=== PATIENT | female | born 1955 | race Caucasian/White ===

== ENCOUNTER → 2016-12-08 | Outpatient (CLI) | payer OTHER | LOC: KOH-I 12:57 | DX: M79.643 Pain in unspecified hand (principal); M25.569 Pain in unspecified knee; M17.0 Bilateral primary osteoarthritis of knee; M19.042 Primary osteoarthritis, left hand; M19.041 Primary osteoarthritis, right hand | CPT/HCPCS: 73130; 73564 ==

== ENCOUNTER 2020-09-13 21:47 | Emergency (ER) | payer OTHER ==
[~2020-09-13 21:47] MED LIST: ADVAIR 250-501 EACH INH; CALCIUM 500 +1 EAC1 PO; COZAAR25 MG PO; ELAVIL 10 MG TA10 MG PO; ELAVIL 25 MG TA25 MG PO; FOLIC ACID 1 MG1 MG PO; IBU800 MG PO; IBUPROFEN600 MG PO; INCRUSE ELLI62.5 MCG INH; K-DUR TAB 10 M10 MEQ PO; KEFLEX CAP 500500 MG PO; LEVAQUIN750 MG PO; LIPITOR TAB 2020 MG PO; LYRICA300 MG PO; METHOTREXATE T2.5 MG PO; METHOTREXATE2.5 MG PO; NORCO 10-325 T1 EACH PO; NORCO 5-325 TA1 EACH PO; NORCO 7.5-3251 EACH PO; OMEPRAZOLE40 MG PO; OMNICEF 300 MG300 MG PO; PERCOCET 10-321 EACH PO; PERCOCET 5-3251 EACH PO; POTASSIUM PO; PROVENTIL HFA6.7 GM INH; VISTARIL 25 MG25 MG PO; VITAMIN B12 SL; VITAMIN D3 PO; ZOLOFT100 MG PO
[2020-09-13 22:20] LABS: HEMOGLOBIN 14.5 gm/dl (12.3-15.3); RED BLOOD COUNT 5.2 M/UL (4.00-5.10); WHITE BLOOD COUNT 8.5 K/UL (4.5-11.0)
[2020-09-13 22:40] LABS: BUN/CREATININE RATIO 24 (0-10)
[2020-09-13] MEDS ORDERED: ZOFRAN 4 MG TAB4 MG PO (23:34)
[2020-09-13] MEDS ORDERED: AUGMENTIN 875-1 EACH PO (23:34)
[2020-09-13] MEDS ORDERED: FLAGYL500 MG PO (23:34)
== END 2020-09-14 00:15 | disposition home or self-care (01) ==
LOC: ER1 21:47
PROVIDERS: Emergency Medicine
DX: K52.9 Noninfective gastroenteritis and colitis, unspecified (principal); J44.9 Chronic obstructive pulmonary disease, unspecified; F17.200 Nicotine dependence, unspecified, uncomplicated
CPT/HCPCS: 71045; 80053; 83605; 83690; 84484; 85025; 93005; 99285; Q9967

== ENCOUNTER 2020-09-29 03:29 | Emergency (ER) | payer OTHER ==
[~2020-09-29 03:29] MED LIST changes: +AUGMENTIN 875-1 EACH PO; +FLAGYL500 MG PO; +ZOFRAN 4 MG TAB4 MG PO
[2020-09-29 08:20] LABS: HEMOGLOBIN 12.6 gm/dl (12.3-15.3); RED BLOOD COUNT 4.48 M/UL (4.00-5.10); WHITE BLOOD COUNT 4.4 K/UL (4.5-11.0)
[2020-09-29 08:39] LABS: BUN/CREATININE RATIO 8 (0-10)
== END 2020-09-29 15:48 | disposition home or self-care (01) ==
LOC: ER1 03:29
PROVIDERS: Family Medicine
DX: S49.91XA Unspecified injury of right shoulder and upper arm, initial encounter (principal); M25.521 Pain in right elbow; R10.9 Unspecified abdominal pain; M54.5 Low back pain; G89.29 Other chronic pain; E87.6 Hypokalemia; R11.2 Nausea with vomiting, unspecified; J44.9 Chronic obstructive pulmonary disease, unspecified; F17.200 Nicotine dependence, unspecified, uncomplicated; Z87.19 Personal history of other diseases of the digestive system; Z88.6 Allergy status to analgesic agent; Z88.5 Allergy status to narcotic agent; Z99.81 Dependence on supplemental oxygen; W19.XXXA Unspecified fall, initial encounter
CPT/HCPCS: 36415; 73030; 73080; 73502; 80053; 81001; 83605; 83690; 85025; 85610; 99285; J7030

== ENCOUNTER 2020-10-23 17:20 | Emergency (ER) | payer OTHER ==
[2020-10-23 18:34] LABS: HEMOGLOBIN 10.2 gm/dl (12.3-15.3); RED BLOOD COUNT 3.7 M/UL (4.00-5.10); WHITE BLOOD COUNT 3.5 K/UL (4.5-11.0)
[2020-10-23 18:53] LABS: BUN/CREATININE RATIO 11 (0-10)
== END 2020-10-23 19:34 | disposition home or self-care (01) ==
LOC: ER1 17:20
PROVIDERS: Physician Assistant
DX: M54.5 Low back pain (principal); G89.29 Other chronic pain; J44.9 Chronic obstructive pulmonary disease, unspecified; E78.5 Hyperlipidemia, unspecified; Z88.6 Allergy status to analgesic agent; Z88.8 Allergy status to other drugs, medicaments and biological substances
CPT/HCPCS: 80053; 85025; 99283

== ENCOUNTER 2020-10-30 18:02 | Emergency (ER) | payer OTHER ==
[2020-10-30] MEDS ORDERED: CYCLOBENZAPRINE10 MG PO (20:22)
== END 2020-10-30 20:45 | disposition home or self-care (01) ==
LOC: ER1 18:02
DX: M62.830 Muscle spasm of back (principal); M62.838 Other muscle spasm; J44.9 Chronic obstructive pulmonary disease, unspecified
CPT/HCPCS: 72040; 72100; 96374; 99283; J1170; J2543; J3370; J7030

== ENCOUNTER → 2020-10-31 | Outpatient (CLI) | payer OTHER ==
[~2020-10-31] MED LIST changes: +CYCLOBENZAPRINE10 MG PO; +NAPROXEN500 MG PO
== END ==
LOC: CT 10-08 14:00
DX: R91.1 Solitary pulmonary nodule (principal); R10.84 Generalized abdominal pain
CPT/HCPCS: 71260; Q9967

== ENCOUNTER → 2020-11-11 | Outpatient (CLI) | payer OTHER | LOC: EXRD 13:41 | DX: E04.1 Nontoxic single thyroid nodule (principal) | CPT/HCPCS: 76536 ==

== ENCOUNTER 2020-11-27 18:01 | Emergency (ER) | payer OTHER ==
[~2020-11-27 18:01] MED LIST changes: -NAPROXEN500 MG PO
[2020-11-27] MEDS ORDERED: CYCLOBENZAPRINE10 MG PO (20:07)
== END 2020-11-27 20:45 | disposition home or self-care (01) ==
LOC: ER1 18:01
DX: M54.2 Cervicalgia (principal); G89.29 Other chronic pain; M54.5 Low back pain; F17.210 Nicotine dependence, cigarettes, uncomplicated
CPT/HCPCS: 96372; 99283; J2270; J2405

== ENCOUNTER 2020-11-29 12:19 | Emergency (ER) | payer OTHER ==
[~2020-11-29 12:19] MED LIST changes: -NAPROXEN500 MG PO
== END 2020-11-29 15:20 | disposition home or self-care (01) ==
LOC: ER1 12:19
DX: S30.0XXA Contusion of lower back and pelvis, initial encounter (principal); S40.011A Contusion of right shoulder, initial encounter; S50.01XA Contusion of right elbow, initial encounter; S80.01XA Contusion of right knee, initial encounter; S40.012A Contusion of left shoulder, initial encounter; S80.02XA Contusion of left knee, initial encounter; W18.30XA Fall on same level, unspecified, initial encounter; Y92.410 Unspecified street and highway as the place of occurrence of the external cause
CPT/HCPCS: 70450; 72100; 73030; 73564; 99284

== ENCOUNTER → 2020-11-29 | Outpatient (CLI) | payer OTHER ==
[~2020-11-29] MED LIST changes: +NAPROXEN500 MG PO
[2020-11-29 10:33] LABS: HEMOGLOBIN 10.7 gm/dl (12.3-15.3); RED BLOOD COUNT 3.93 M/UL (4.00-5.10); WHITE BLOOD COUNT 4.9 K/UL (4.5-11.0)
== END | disposition home or self-care (01) ==
LOC: US 09:55
PROVIDERS: Otolaryngology
DX: E04.1 Nontoxic single thyroid nodule (principal)
CPT/HCPCS: 36415; 85027; 85610; 85730

== ENCOUNTER 2021-01-12 22:48 | Emergency (ER) | payer OTHER | END 2021-01-13 01:40 | disposition home or self-care (01) | LOC: ER1 22:48 | DX: S63.601A Unspecified sprain of right thumb, initial encounter (principal); S80.02XA Contusion of left knee, initial encounter; S80.01XA Contusion of right knee, initial encounter; M06.9 Rheumatoid arthritis, unspecified; J44.9 Chronic obstructive pulmonary disease, unspecified; F17.200 Nicotine dependence, unspecified, uncomplicated; W01.0XXA Fall on same level from slipping, tripping and stumbling without subsequent striking against object, initial encounter | CPT/HCPCS: 73130; 73564; 99283; J1885 ==

== ENCOUNTER 2021-02-25 20:00 | Emergency (ER) | payer OTHER ==
[2021-02-25] MEDS ORDERED: NAPROXEN500 MG PO (21:05)
== END 2021-02-25 21:20 | disposition home or self-care (01) ==
LOC: ER1 20:00
DX: S40.022A Contusion of left upper arm, initial encounter (principal); S80.212A Abrasion, left knee, initial encounter; J44.9 Chronic obstructive pulmonary disease, unspecified; W17.89XA Other fall from one level to another, initial encounter; Y92.009 Unspecified place in unspecified non-institutional (private) residence as the place of occurrence of the external cause
CPT/HCPCS: 73060; 73080; 73564; 99283

== ENCOUNTER 2021-03-18 23:18 | Emergency (ER) | payer OTHER ==
[~2021-03-18 23:18] MED LIST changes: +NAPROXEN500 MG PO
[2021-03-19] MEDS ORDERED: Voltaren Gel 1 % TOP (02:33)
== END 2021-03-19 02:35 | disposition home or self-care (01) ==
LOC: ER1 23:18
DX: M54.5 Low back pain (principal); Z79.899 Other long term (current) drug therapy; F17.200 Nicotine dependence, unspecified, uncomplicated
CPT/HCPCS: 99283

== ENCOUNTER 2021-04-09 16:18 | Emergency (ER) | payer OTHER ==
[~2021-04-09 16:18] MED LIST changes: +Voltaren Gel 1 % TOP
[2021-04-09 19:48] LABS: HEMOGLOBIN 11.1 gm/dl (12.3-15.3); RED BLOOD COUNT 3.98 M/UL (4.00-5.10); WHITE BLOOD COUNT 4.3 K/UL (4.5-11.0)
[2021-04-09 20:13] LABS: BUN/CREATININE RATIO 11 (0-10)
[2021-04-09] MEDS ORDERED: DOXYCYCLINE HY100 MG PO (21:43)
[2021-04-09] MEDS ORDERED: PREDNISONE 20 M20 MG PO (21:43)
[2021-04-09] MEDS ORDERED: TESSALON PERLE100 MG PO (21:44)
== END 2021-04-09 22:08 | disposition home or self-care (01) ==
LOC: ER1 16:18
PROVIDERS: Physician Assistant
DX: J44.1 Chronic obstructive pulmonary disease with (acute) exacerbation (principal); R35.0 Frequency of micturition; Z88.5 Allergy status to narcotic agent; Z88.8 Allergy status to other drugs, medicaments and biological substances; F17.200 Nicotine dependence, unspecified, uncomplicated; Z20.822 Contact with and (suspected) exposure to COVID-19; M06.9 Rheumatoid arthritis, unspecified
CPT/HCPCS: 36600; 71045; 80053; 82550; 82553; 82803; 83874; 84484; 85025; 93005; 94664; 94760; 96374; 99285; J2930; U0002

== ENCOUNTER 2021-04-10 22:55 | Emergency (ER) | payer OTHER ==
[~2021-04-10 22:55] MED LIST changes: +DOXYCYCLINE HY100 MG PO; +PREDNISONE 20 M20 MG PO; +TESSALON PERLE100 MG PO
[2021-04-10 23:33] LABS: RED BLOOD COUNT 3.96 M/UL (4.00-5.10); WHITE BLOOD COUNT 5.1 K/UL (4.5-11.0)
[2021-04-11 00:11] LABS: BUN/CREATININE RATIO 13 (0-10)
== END 2021-04-11 00:30 | disposition home or self-care (01) ==
LOC: ER1 22:55
PROVIDERS: Preventive Medicine Occupational Medicine
DX: J44.9 Chronic obstructive pulmonary disease, unspecified (principal); F17.210 Nicotine dependence, cigarettes, uncomplicated
CPT/HCPCS: 36600; 71045; 80053; 82550; 82553; 82803; 83605; 83874; 83880; 84484; 85025; 86140; 87040; 93005; 94664; 94760; 96374; 96375; 99285; J0696; J2930

== ENCOUNTER 2021-09-22 17:43 | Emergency (ER) | payer MEDICARE, OTHER ==
[2021-09-22] MEDS ORDERED: LOTRIMIN AF90 GM TP (18:10)
== END 2021-09-22 18:23 | disposition home or self-care (01) ==
LOC: ER1 17:43
DX: B37.2 Candidiasis of skin and nail (principal); G89.29 Other chronic pain; M54.2 Cervicalgia; M54.9 Dorsalgia, unspecified; J44.9 Chronic obstructive pulmonary disease, unspecified; F17.210 Nicotine dependence, cigarettes, uncomplicated; Z88.5 Allergy status to narcotic agent; Z88.6 Allergy status to analgesic agent; Z88.8 Allergy status to other drugs, medicaments and biological substances
CPT/HCPCS: 99283

== ENCOUNTER 2021-12-03 22:48 | Emergency (ER) | payer MEDICARE, OTHER ==
[~2021-12-03 22:48] MED LIST changes: +LOTRIMIN AF90 GM TP
[2021-12-04 02:51] LABS: HEMOGLOBIN 12.8 gm/dl (12.3-15.3); RED BLOOD COUNT 4.45 M/UL (4.00-5.10); WHITE BLOOD COUNT 5.8 K/UL (4.5-11.0)
[2021-12-04 03:23] LABS: BUN/CREATININE RATIO 12 (0-10)
== END 2021-12-04 05:45 | disposition home or self-care (01) ==
LOC: ER1 22:48
PROVIDERS: Physician Assistant
DX: S20.211A Contusion of right front wall of thorax, initial encounter (principal); R10.11 Right upper quadrant pain; G89.29 Other chronic pain; M54.50 Low back pain, unspecified; F17.200 Nicotine dependence, unspecified, uncomplicated; Z88.6 Allergy status to analgesic agent; W01.10XA Fall on same level from slipping, tripping and stumbling with subsequent striking against unspecified object, initial encounter
CPT/HCPCS: 71111; 80053; 81001; 82550; 82553; 83690; 84484; 85025; 93005; 99284; Q9967

== ENCOUNTER 2021-12-09 18:27 | Emergency (ER) | payer MEDICARE, OTHER ==
[2021-12-09] MEDS ORDERED: IBUPROFEN600 MG PO (22:07)
[2021-12-09] MEDS ORDERED: CYCLOBENZAPRINE10 MG PO (22:07)
== END 2021-12-09 22:25 | disposition home or self-care (01) ==
LOC: ER1 18:27
DX: S20.211A Contusion of right front wall of thorax, initial encounter (principal); S20.224A Contusion of middle back wall of thorax, initial encounter; K21.9 Gastro-esophageal reflux disease without esophagitis; Z88.6 Allergy status to analgesic agent; Z88.5 Allergy status to narcotic agent; W22.8XXA Striking against or struck by other objects, initial encounter; Y92.009 Unspecified place in unspecified non-institutional (private) residence as the place of occurrence of the external cause
CPT/HCPCS: 71250; 72128; 72131; 99283

== ENCOUNTER 2021-12-12 14:44 | Emergency (ER) | payer MEDICARE, OTHER | END 2021-12-12 18:18 | disposition home or self-care (01) | LOC: ER1 14:44 | DX: M51.36 Other intervertebral disc degeneration, lumbar region (principal); J44.9 Chronic obstructive pulmonary disease, unspecified; F17.210 Nicotine dependence, cigarettes, uncomplicated | CPT/HCPCS: 81001; 99283 ==

== ENCOUNTER 2021-12-21 20:00 | Emergency (ER) | payer MEDICARE, OTHER ==
[2021-12-21 21:47] LABS: HEMOGLOBIN 11.9 gm/dl (12.3-15.3); RED BLOOD COUNT 4.18 M/UL (4.00-5.10); WHITE BLOOD COUNT 3.7 K/UL (4.5-11.0)
[2021-12-21 22:07] LABS: BUN/CREATININE RATIO 9 (0-10)
[2021-12-21] MEDS ORDERED: ONDANSETRON ODT4 MG SL (23:26)
== END 2021-12-22 00:20 | disposition home or self-care (01) ==
LOC: ER1 20:00
PROVIDERS: Student in an Organized Health Care Education/Training Program
DX: E87.6 Hypokalemia (principal); R10.31 Right lower quadrant pain; J44.9 Chronic obstructive pulmonary disease, unspecified; F17.200 Nicotine dependence, unspecified, uncomplicated; Z88.6 Allergy status to analgesic agent; Z88.8 Allergy status to other drugs, medicaments and biological substances
CPT/HCPCS: 80053; 81001; 83690; 85025; 99284; Q9967

== ENCOUNTER 2022-01-11 14:53 | Emergency (ER) | payer MEDICARE, OTHER ==
[~2022-01-11 14:53] MED LIST changes: +ONDANSETRON ODT4 MG SL
[2022-01-11 15:38] LABS: HEMOGLOBIN 13.7 gm/dl (12.3-15.3); RED BLOOD COUNT 4.73 M/UL (4.00-5.10); WHITE BLOOD COUNT 3.6 K/UL (4.5-11.0)
[2022-01-11 15:56] LABS: BUN/CREATININE RATIO 21 (0-10)
[2022-01-11] MEDS ORDERED: ZOFRAN ODT 4 MG4 MG GT (17:38)
== END 2022-01-11 18:30 | disposition home or self-care (01) ==
LOC: ER1 14:53
PROVIDERS: Physician Assistant
DX: B34.9 Viral infection, unspecified (principal); J44.9 Chronic obstructive pulmonary disease, unspecified; M06.9 Rheumatoid arthritis, unspecified; F17.210 Nicotine dependence, cigarettes, uncomplicated; Z88.6 Allergy status to analgesic agent; Z88.8 Allergy status to other drugs, medicaments and biological substances; Z20.822 Contact with and (suspected) exposure to COVID-19
CPT/HCPCS: 0240U; 80053; 81001; 83690; 85025; 94664; 96374; 96375; 99284; J1885; J2405

== ENCOUNTER 2022-01-19 14:42 | Emergency (ER) | payer MEDICARE, OTHER ==
[~2022-01-19 14:42] MED LIST changes: +ZOFRAN ODT 4 MG4 MG GT
[2022-01-19] MEDS ORDERED: HYDROCODON-ACE1 EAC4 PO (16:12)
== END 2022-01-19 16:44 | disposition home or self-care (01) ==
LOC: ER1 14:42
DX: M54.32 Sciatica, left side (principal); J44.9 Chronic obstructive pulmonary disease, unspecified; M06.9 Rheumatoid arthritis, unspecified; F17.210 Nicotine dependence, cigarettes, uncomplicated
CPT/HCPCS: 73522; 99283

== ENCOUNTER 2022-02-13 18:42 | Emergency (ER) | payer MEDICARE, OTHER ==
[~2022-02-13 18:42] MED LIST changes: +HYDROCODON-ACE1 EAC4 PO
== END 2022-02-13 22:15 | disposition home or self-care (01) ==
LOC: ER1 18:42
DX: S76.011A Strain of muscle, fascia and tendon of right hip, initial encounter (principal); W18.40XA Slipping, tripping and stumbling without falling, unspecified, initial encounter; Y92.009 Unspecified place in unspecified non-institutional (private) residence as the place of occurrence of the external cause
CPT/HCPCS: 73502; 90471; 90715; 99283

== ENCOUNTER 2022-03-06 12:02 | Emergency (ER) | payer MEDICARE ==
[~2022-03-06] VITALS: Ht 162.6 cm; Wt 68.0 kg
[2022-03-06 12:50] LABS: HEMOGLOBIN 12.3 gm/dl (12.3-15.3); RED BLOOD COUNT 4.22 M/UL (4.00-5.10); WHITE BLOOD COUNT 2.2 K/UL (4.5-11.0)
[2022-03-06 13:52] LABS: BUN/CREATININE RATIO 13 (0-10)
[2022-03-06] MEDS ORDERED: PROVENTIL HFA6.7 GM INH (15:57)
[2022-03-06] MEDS ORDERED: K-TAB ER20 MEQ PO (15:59)
== END 2022-03-06 18:11 | disposition home or self-care (01) ==
LOC: ER1 12:02
DX: U07.1 COVID-19 (principal); Z23 Encounter for immunization; E87.6 Hypokalemia; J44.9 Chronic obstructive pulmonary disease, unspecified; Z88.6 Allergy status to analgesic agent; Z88.1 Allergy status to other antibiotic agents; Z88.8 Allergy status to other drugs, medicaments and biological substances
CPT/HCPCS: 0240U; 71045; 80053; 81001; 82550; 82553; 84484; 85025; 93005; 94664; 99284; M0222

== ENCOUNTER 2022-03-12 15:29 | Emergency (ER) | payer MEDICARE ==
[~2022-03-12 15:29] MED LIST changes: +K-TAB ER20 MEQ PO
[2022-03-12 15:56] LABS: HEMOGLOBIN 10.9 gm/dl (12.3-15.3); RED BLOOD COUNT 3.69 M/UL (4.00-5.10); WHITE BLOOD COUNT 3.7 K/UL (4.5-11.0)
[2022-03-12 16:19] LABS: BUN/CREATININE RATIO 5 (0-10)
[2022-03-12] MEDS ORDERED: DECADRON6 MG PO (18:41)
[2022-03-12] MEDS ORDERED: BENZONATATE200 MG PO (18:49)
== END 2022-03-12 19:35 | disposition home or self-care (01) ==
LOC: ER1 15:29
PROVIDERS: Nurse Practitioner
DX: U07.1 COVID-19 (principal); J40 Bronchitis, not specified as acute or chronic; I10 Essential (primary) hypertension; E87.6 Hypokalemia; D61.818 Other pancytopenia; J44.9 Chronic obstructive pulmonary disease, unspecified; K21.9 Gastro-esophageal reflux disease without esophagitis; F17.200 Nicotine dependence, unspecified, uncomplicated
CPT/HCPCS: 71045; 80053; 82550; 82553; 84484; 85025; 93005; 94664; 99285

== ENCOUNTER 2022-04-04 12:57 | Emergency (ER) | payer MEDICARE ==
[~2022-04-04 12:57] MED LIST changes: +BENZONATATE200 MG PO; +DECADRON6 MG PO
[2022-04-04] MEDS ORDERED: MEDROL4 MG PO (16:32)
== END 2022-04-04 17:40 | disposition home or self-care (01) ==
LOC: ER1 12:57
DX: M51.16 Intervertebral disc disorders with radiculopathy, lumbar region (principal); J44.9 Chronic obstructive pulmonary disease, unspecified; F17.200 Nicotine dependence, unspecified, uncomplicated; Z88.5 Allergy status to narcotic agent; Z88.6 Allergy status to analgesic agent
CPT/HCPCS: 72131; 96372; 99283; J2930

== ENCOUNTER 2022-04-11 13:08 | Emergency (ER) | payer MEDICARE ==
[~2022-04-11 13:08] MED LIST changes: +MEDROL4 MG PO
[2022-04-11] MEDS ORDERED: HYDROCODON-ACE1 EAC4 PO (15:37)
== END 2022-04-11 16:12 | disposition home or self-care (01) ==
LOC: ER1 13:08
DX: M54.50 Low back pain, unspecified (principal); G89.29 Other chronic pain; M06.9 Rheumatoid arthritis, unspecified; I10 Essential (primary) hypertension; J44.9 Chronic obstructive pulmonary disease, unspecified; F17.200 Nicotine dependence, unspecified, uncomplicated; Z88.8 Allergy status to other drugs, medicaments and biological substances
CPT/HCPCS: 99283